=== PATIENT | male | born 1985 | race African-American/Black ===

== ENCOUNTER 2019-05-19 01:15 | Emergency (ER) | payer OTHER ==
[~2019-05-19] VITALS: Ht 182.9 cm; Wt 83.9 kg
[2019-05-19] MEDS ORDERED: TDAP [DIPH/PERTUSSIS/TET] 0.5 ML VIAL IM ONE ×2 (01:30→01:36)
[2019-05-19] MEDS ORDERED: MORPHINE SULFATE INJ 4 MG/ML DISP.SYRIN IM ONE (01:30)
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
[2019-05-19] MEDS ORDERED: MORPHINE SULFATE INJ 4 MG/ML DISP.SYRIN ONE (01:36)
--- NOTE | 2019-05-19 01:38 | NUR ---
XRAY AT BEDSIDE
[2019-05-19] MEDS ORDERED: HYDROCODONE/APAP 10/325MG 1 EA TABLET ONE (01:55)
[2019-05-19] MEDS ORDERED: HYDROCODONE/APAP 10/325MG 1 EA TABLET PO ONE (02:00)
--- NOTE | 2019-05-19 02:35 | NUR ---
Patient discharged to home in stable condition. Written and verbal after care instructions given. Patient verbalizes understanding of instruction. Pt ambulatory with a steady gait
[2019-05-19 02:53] VITALS: BP 128/85
== END 2019-05-19 02:35 | disposition home or self-care (01) ==
LOC: ER 01:17 → EDBD 01:17 → ER 02:35
DX: S62.394A Other fracture of fourth metacarpal bone, right hand, initial encounter for closed fracture (principal); W22.8XXA Striking against or struck by other objects, initial encounter; Y93.89 Activity, other specified; Y92.89 Other specified places as the place of occurrence of the external cause; Y99.8 Other external cause status
CPT/HCPCS: 29125; 73130; 90471; 90715; 96372; 99284; J2270